=== PATIENT | male | born 2005 | race Caucasian/White ===

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

== ENCOUNTER 2025-04-25 16:36 | Outpatient (CLI) | payer OTHER, SELFPAY ==
[2025-04-25 17:28] LABS: Calculated LDL 114 mg/dL (<100); Cholesterol 185 mg/dL (<200); HDL Cholesterol 33 mg/dL (>or=40); Triglyceride 194 mg/dL (<150)
[2025-04-26 19:34] LABS: HIV-1/2 Ag & Ab Screen Negative (Negative)
[2025-04-26 19:35] LABS: Hepatitis C Ab w Rflx HCV PCR Negative (Negative)
== END 2025-04-25 16:37 | disposition home or self-care (01) ==
LOC: LBO 16:39
PROVIDERS: PCP Family Medicine; Visit Provider Family Medicine
DX: Z00.00 Encounter for general adult medical examination without abnormal findings (principal)
CPT/HCPCS: 36415; 80061; 86803; 87389